=== PATIENT | female | born 1960 | race Caucasian/White ===

== ENCOUNTER 2016-07-12 13:00 | Outpatient (CLI) | payer MEDICAID | END 2016-07-12 13:30 | disposition home or self-care (01) | DX: R07.89 Other chest pain (principal) ==

== ENCOUNTER 2016-07-13 07:11 | Outpatient (CLI) | payer MEDICAID | END 2016-07-13 07:12 | disposition home or self-care (01) | DX: E78.5 Hyperlipidemia, unspecified (principal) ==

== ENCOUNTER 2017-03-22 15:00 | Outpatient (CLI) | payer MEDICAID | END 2017-03-22 15:15 | disposition home or self-care (01) | LOC: RT.N 15:00 | PROVIDERS: ATTEND Family Medicine | DX: R07.9 Chest pain, unspecified (principal) | CPT/HCPCS: 93005 ==

== ENCOUNTER → 2017-10-16 | Outpatient (CLI) | payer MEDICAID | LOC: RT.N 11:42 | PROVIDERS: ATTEND Family Medicine | DX: R07.9 Chest pain, unspecified (principal) | CPT/HCPCS: 93005 ==